=== PATIENT | male | born 1965 | race Caucasian/White ===

== ENCOUNTER 2018-03-08 23:45 | Emergency (ER) | payer BC, OTHER ==
[~2018-03-08] VITALS: Ht 180.3 cm; Wt 103.3 kg
[~2018-03-08 23:45] MED LIST: TRAMADOL HCL50 MG PO
[2018-03-09 00:20] LABS: HEMATOCRIT 51.4 % (38.0-50.0); HEMOGLOBIN 17.7 G/DL (12.5-16.6); MCH 29.8 PG (29.0-34.0); MCHC 34.4 G/DL (30.0-36.0); MCV 86.7 FL (86-99); PLATELET COUNT 212 K/uL (156-360); RBC DIS.WIDTH-CV 13.3 % (11.8-14.6); RBC DIS.WIDTH-SD 42.5 % (39-53); RED BLOOD COUNT 5.93 M/uL (4.00-5.50); WHITE BLOOD COUNT 10.3 K/uL (4.1-10.2)
[2018-03-09 00:33] LABS: ALBUMIN 4.1 g/dL (3.2-4.8); CHLORIDE 105 mEq/L (99-109); POTASSIUM 3.8 mEq/L (3.7-5.4); SODIUM 138 mEq/L (136-147)
[2018-03-09 00:35] LABS: GLUCOSE 131 mg/dL (70-99); TOTAL PROTEIN 7.3 g/dL (6.4-8.3)
[2018-03-09 00:37] LABS: TOTAL BILIRUBIN 1.9 mg/dL (0.0-1.0)
[2018-03-09 00:39] LABS: ALKALINE PHOSPHATASE 95 IU/L (3-129); GFR ESTIMATE (CALCULATED) > 59 mL/min/ (58.99-99999)
[2018-03-09 00:40] LABS: UREA NITROGEN (BUN) 25 mg/dL (9-23)
[2018-03-09 00:41] LABS: AST (GOT) 28 IU/L (2-34)
[2018-03-09 00:42] LABS: ALT (GPT) 45 IU/L (3-49); LIPASE 28 U/L (1.0-51.0)
[2018-03-09 01:15] LABS: APPEARANCE SL.HAZY ((CLEAR)); BILIRUBIN NEGATIVE; BLOOD NEGATIVE; COLOR YELLOW ((YELLOW)); GLUCOSE (STRIP) NEGATIVE; KETONES NEGATIVE; LEUKOCYTES NEGATIVE; NITRITE NEGATIVE; PROTEIN (STRIP) 30; SPECIFIC GRAVITY 1.031 (1.000-1.030); UROBILINOGEN 0.2 MG/DL (0.2-1.0)
[2018-03-09 01:18] LABS: BACTERIA NONE SEEN /HPF; EPITHELIAL CELLS RARE /HPF; HYALINE CASTS 0-5 /LPF; MUCUS 1+ /LPF; RED BLOOD CELLS 0-5 /HPF (0-5); UCUL ADDED? NO; WHITE BLOOD CELLS 0-5 /HPF (0-5)
[2018-03-09] MEDS ORDERED: BENTYL10 MG PO (02:51)
[2018-03-09] MEDS ORDERED: CIPRO500 MG PO (02:51)
[2018-03-09 02:59] VITALS: BP 140/82
== END 2018-03-09 03:00 | disposition home or self-care (01) ==
LOC: EME 23:45
DX: R10.9 Unspecified abdominal pain (principal); R19.7 Diarrhea, unspecified; I10 Essential (primary) hypertension
CPT/HCPCS: 74177; 80053; 81003; 83690; 85027; 99281; 99284